=== PATIENT | male | born 1995 | race African-American/Black ===

== ENCOUNTER 2022-03-25 22:58 | Emergency (ER) | payer SELFPAY ==
[~2022-03-25] VITALS: Ht 180.3 cm; Wt 54.4 kg
--- NOTE | 2022-03-25 23:21 | NUR ---
Dr. Ponce at bedside for MSE.
--- NOTE | 2022-03-25 23:28 | NUR ---
Xray at bedside.
[2022-03-25] MEDS ORDERED: LAMO25TA5 GT (23:32)
[2022-03-25] MEDS ORDERED: OXYC-128 PO (23:53)
[2022-03-25 23:56] VITALS: BP 128/89
--- NOTE | 2022-03-25 23:56 | NUR ---
Patient discharged to home in stable condition. Written and verbal after care instructions given. Patient verbalizes understanding of instructions. Stressed follow up or return to ER for worsening s/s. Patient out of ER with steady gait, no acute signs of distress, VSS, all belongings taken.
== END 2022-03-25 23:57 | disposition home or self-care (01) ==
LOC: ER 23:13
DX: M24.411 Recurrent dislocation, right shoulder (principal); G40.909 Epilepsy, unspecified, not intractable, without status epilepticus; Z79.899 Other long term (current) drug therapy
CPT/HCPCS: 73020; A4663